=== PATIENT | male | born 1980 | race Two or more races ===

== ENCOUNTER 2020-09-14 14:54 | Emergency (ER) | payer MEDICAID ==
[~2020-09-14] VITALS: Ht 165.1 cm; Wt 79.4 kg
--- NOTE | 2020-09-14 15:14 | NUR ---
ED Nurse Note: pt presents to ED c/o cough and COOMBS x 4 days. he reports a (+) COVID test from today. states that he has been taking tylenol and levoflaxacin as prescribed by PCP. last dose of tylenol was last PM. pt is noted to have a low grade fever but vital signs are otherwise stable
[2020-09-14 15:15] VITALS: BP 132/83
--- NOTE | 2020-09-14 16:07 | Emergency Room Report ---
History of Present Illness General Chief Complaint: Upper Respiratory Illness Source: Patient Present Illness HPI 39-year-old male with no significant past history of prediabetes here with the current status of Covid 19 complaining of cough and congestion. Reports that primary doctor already will have Levaquin however did not recommend cough medication. Patient is requesting to be treated with Bamlanimivab however does not meet the criteria. Patient denies any tobacco smoke drug use. Satting 98% and afebrile. Patient is not in any distress at this time. Sitting comfortably speaking in full sentences. 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 COVID-19 Screening: Positive COVID-19 COVID-19 Testing Source: work Patient History Past Medical History: see triage record Past Surgical History: none Pertinent Family History: none Immunizations: UTD Reviewed Nursing Documentation: PMH: Agreed; PSxH: Agreed Nursing Documentation-PMH Hx Diabetes: Yes Review of Systems All Other Systems: negative except mentioned in HPI Physical Exam Vital Signs Date Time Temp Pulse Resp B/P (MAP) Pulse Ox O2 Delivery O2 Flow Rate FiO2 09/14/20 15:05 99.3 110 18 132/83 (99) 97 Room Air Sp02 EP Interpretation: reviewed, normal General Appearance: no apparent distress, alert, GCS 15, non-toxic Head: normocephalic, atraumatic Eyes: bilateral eye normal inspection, bilateral eye PERRL ENT: hearing grossly normal, no angioedema, normal voice Neck: supple Respiratory: no respiratory distress, no retraction, no accessory muscle use Cardiovascular #1: no edema, no murmur Gastrointestinal: soft Musculoskeletal: back normal Neurologic: alert, motor strength/tone normal, oriented x3, sensory intact, res ponsive, speech normal Psychiatric: judgement/insight normal, memory normal, mood/affect normal, no suicidal/homicidal ideation Skin: no rash Lymphatic: no adenopathy Medical Decision Making PA Attestation All my diagnosis and treatment plans were reviewed ad discussed with my [facility] physician Dr. Smith Diagnostic Impression: Primary Impression: COVID-19 virus infection ER Course 39-year-old male with no significant past history of prediabetes here with the current status of Covid 19 complaining of cough and congestion. Reports that primary doctor already will have Levaquin however did not recommend cough medication. Patient is requesting to be treated with Bamlanimivab however does not meet the criteria. Patient denies any tobacco smoke drug use. Satting 98% and afebrile. Patient is not in any distress at this time. Sitting comfortably speaking in full sentences. Ddx considered but are not limited to: bronchitis, PNA, URI viral, bacterial bronchitis, COVID-19 infection Vital signs: are WNL, pt. is afebrile H&PE are most consistent with: COVID-19 infection ORDERS: Chest x-ray, Phenergan, prednisone, albuterol ED INTERVENTIONS: None required at this time. DISCHARGE: At this time pt. is stable for d/c to home. Will provide printed patient care instructions, and any necessary prescriptions. Care plan and follow up instructions have been discussed with the patient prior to discharge. Patient to continue taking Levaquin, take medication as directed, follow primary care provider, quarantine for 14 days, if hypoxia worsening symptoms return to the emergency room Chest X-Ray Diagnostic Results Chest X-Ray Diagnostic Results : Chest X-Ray Ordered: Yes # of Views/Limited/Complete: 1 View Indication: Shortness of Breath EP Interpretation: Yes LORI Xray: Interpretation reviewed, by supervising MD, and agrees with findings. Interpretation: no consolidation, no effusion, no pneumothorax Impression: No acute disease Electronically Signed by: Mikaela Saul PA-C Last Vital Signs Date Time Temp Pulse Resp B/P (MAP) Pulse Ox O2 Delivery O2 Flow Rate FiO2 09/14/20 15:15 99.3 18 132/83 97 Room Air 09/14/20 15:15 110 Disposition: HOME, SELF-CARE Condition: Stable Scripts Albuterol Sulfate (VENTOLIN HFA) 18 Gm Hfa.aer.ad 2 PUFFS INH EVERY 6 HOURS, #18 GM 0 Refills Prov: Mikaela Arredondo 09/14/20 Promethazine Hcl (PROMETHAZINE HCL*) 6.25 Mg/5 Ml Syrup 5 ML ORAL Q8H, #120 ML 0 Refills Prov: Mikaela Arredondo 09/14/20 Prednisone* (PREDNISONE*) 20 Mg Tablet 40 MG ORAL DAILY for 5 Days, #10 TAB Prov: Mikaela Arredondo 09/14/20 Patient Instructions: Upper Respiratory Infection, Adult Additional Instructions: Continue taking your Levaquin, start taking prednisone and Phenergan, follow wit h your primary care provider, quarantine for 2 weeks, if any respiratory distress return to the emergency room. Mikaela Arredondo Sep 14, 2020 16:07
[2020-09-14] MEDS ORDERED: PREDNISONE20 MG ORAL (16:08)
[2020-09-14] MEDS ORDERED: PROMETHAZI6.25 MG/1 ORAL (16:08)
[2020-09-14] MEDS ORDERED: VENTOLIN HFA18 GM INH (16:08)
[2020-09-14 16:24] VITALS: BP 120/80
--- NOTE | 2020-09-14 16:27 | NUR ---
discharged home with instruction and rx follow up with pmd
--- NOTE | 2020-09-14 17:43 | Diagnostic Imaging Report ---
Indication: Shortness of breath Technique: One view of the chest Comparison: none Findings: Lungs and pleural spaces are clear. Heart size is normal. Impression: No acute process
== END 2020-09-14 16:27 | disposition home or self-care (01) ==
LOC: EMR 15:15
DX: U07.1 COVID-19 (principal); R05 Cough; E11.9 Type 2 diabetes mellitus without complications
CPT/HCPCS: 71045; Z7502; 99283